=== PATIENT | male | born 1955 | race Caucasian/White ===

== ENCOUNTER 2019-11-01 14:34 | Inpatient (IN) | payer OTHER, MEDICARE ==
[2019-11-01] MEDS ORDERED: IPRATROPIUM/ALBUTEROL 0.5-2.5 MG/3 ML AMPUL NEB ONE (15:30)
--- NOTE | 2019-11-01 15:30 | ER Document Report ---
ED General - General Chief Complaint: General Weakness Stated Complaint: GENERAL WEAKNESS Time Seen by Provider: 11/01/19 15:10 Mode of Arrival: Ambulatory Information source: Patient TRAVEL OUTSIDE OF THE [place] IN LAST 30 DAYS: No - HPI Onset: Other - over the last few days Onset/Duration: Gradual Quality of pain: Pressure Severity: Moderate Associated symptoms: Nonproductive cough Exacerbated by: Other - exertion Relieved by: Remaining still Similar symptoms previously: No Recently seen / treated by doctor: No Notes: 64 year old male with a history of heavy smoking (used to smoke 2-3 packs a day but is down to 1/2 pack a day), HTN, and "Prostate Issues" here for shortness of breath, generalized weakness, and swelling in his lower extremities. The patient is not very clear on his timeline but he says he has been short of breath for over a month but he thinks the feet/leg swelling has been getting acutely worse over the last few weeks. The patient says he gets very short of breath with exertion as well. The patient also says he has some numbness and tingling in his feet/legs. - Related Data Allergies/Adverse Reactions: Penicillins Allergy (Verified 07/09/17 11:40) Past Medical History - General Information source: Patient - Social History Smoking Status: Current Every Day Smoker Frequency of alcohol use: Occasional Drug Abuse: None Family History: Reviewed & Not Pertinent - Past Medical History Cardiac Medical History: Reports: Hx Hypertension EENT Medical History: Reports: None Neurological Medical History: Reports: None Endocrine Medical History: Reports: Hx Diabetes Mellitus Type 2 Renal/ Medical History: Reports: None. Denies: Hx Peritoneal Dialysis Malignancy Medical History: Reports None GI Medical History: Reports: None Musculoskeletal Medical History: Reports None Skin Medical History: Reports None Psychiatric Medical History: Reports: None - Immunizations Hx Diphtheria, Pertussis, Tetanus Vaccination: Yes Review of Systems - Review of Systems Constitutional: Weakness EENT: No symptoms reported Cardiovascular: Orthopnea, Dyspnea, Dizziness, Edema Respiratory: Cough, Short of breath, Wheezing Gastrointestinal: No symptoms reported Genitourinary: No symptoms reported Male Genitourinary: No symptoms reported Musculoskeletal: No symptoms reported Skin: Other - edema of lower legs Neurological/Psychological: No symptoms reported -: Yes All other systems reviewed and negative Physical Exam - Vital signs Vitals: Resp 28 H 11/01/19 14:41 - Notes Notes: GENERAL: Poor Hygiene, Obese, in no acute distress. HEAD: Atraumatic, normocephalic. EYES: Pupils equal round and reactive to light, extraocular movements intact, sclera anicteric, conjunctiva are normal. ENT: Nares patent, oropharynx clear without exudates. Moist mucous membranes. NECK: Normal range of motion, supple without lymphadenopathy or JVD. LUNGS: Decreased breath sounds throughout, mild wheezing throughout, no rales or rhonchi. HEART: Regular rate and rhythm without murmurs, rubs or gallops. ABDOMEN: Soft, nontender, normoactive bowel sounds. No guarding, no rebound. No masses appreciated. EXTREMITIES: Pitting edema of swelling of bilateral feet and lower legs. Normal range of motion. No clubbing or cyanosis. NEUROLOGICAL: Cranial nerves II through XII grossly intact. Normal speech, normal gait. PSYCH: Normal mood, normal affect. SKIN: Warm, Dry, normal turgor, no rashes or lesions noted. Course - Re-evaluation Re-evalutation: 11/01/19 17:19 The patient has has hypercarbic and hypoxica respiratory failure which is likely due to undiagnosed COPD with a possible component of mild CHF (he has edema in his legs a moderately elevated BNP). Patient is on 3L of Oxygen here in the ER and he is not on any at home. Patient admitted after treatment with a Neb and O2. - Vital Signs Vital signs: Temp Pulse Resp BP Pulse Ox 93 28 H 172/79 H 88 L 11/01/19 15:35 11/01/19 16:01 11/01/19 16:01 11/01/19 16:57 - Laboratory Result Diagrams: 11/01/19 15:45 11/01/19 15:45 Laboratory results interpreted by me: 11/01/19 11/01/19 11/01/19 15:38 15:45 15:45 RDW 16.0 H Carbonic Acid 1.82 H ABG pCO2 60.4 H ABG pO2 45.0 L ABG HCO3 32.4 H ABG Total CO2 34.3 H ABG O2 Saturation 77.6 L Chloride 97 L Carbon Dioxide 32 H Glucose 121 H NT-Pro-B Natriuret Pep 11/01/19 15:45 RDW Carbonic Acid ABG pCO2 ABG pO2 ABG HCO3 ABG Total CO2 ABG O2 Saturation Chloride Carbon Dioxide Glucose NT-Pro-B Natriuret Pep 1020 H - Diagnostic Test Radiology reviewed: Image reviewed, Reports reviewed - EKG Interpretation by Me EKG shows normal: Sinus rhythm, [place], Intervals, QRS Complexes Rate: Normal Rhythm: NSR [place]/QRS: LAHB/LAFB Discharge - Discharge Clinical Impression: Acute respiratory failure with hypoxia and hypercarbia Edema Qualifiers: Edema type: localized Qualified Code(s): R60.0 - Localized edema Condition: Stable Disposition: ADMITTED INPATIENT Admitting Provider: Alex (Hospitalist) Unit Admitted: Medical Floor
[2019-11-01 15:49] LABS: ARTERIAL BLOOD BASE EXCESS 4.6 mmol/L; ARTERIAL BLOOD H2CO3 1.82 mmol/L (1.05-1.35); ARTERIAL BLOOD HCO3 32.4 mmol/L (20-24); ARTERIAL BLOOD O2 SATURATION 77.6 % (94-98); ARTERIAL BLOOD PCO2 60.4 mmHg (35-45); ARTERIAL BLOOD PH 7.35 (7.35-7.45); ARTERIAL BLOOD TOTAL CO2 34.3 mmol/L (23-27)
[2019-11-01 15:50] LABS: ARTERIAL BLOOD FIO2 ROOM AIR
--- NOTE | 2019-11-01 15:53 | RADIOLOGY REPORT (SQ) ---
EXAM DESCRIPTION: CHEST SINGLE VIEW COMPLETED DATE/TIME: 11/01/2019 3:19 pm REASON FOR STUDY: dyspnea COMPARISON: PA and lateral views of the chest from 06/26/2014. EXAM PARAMETERS: NUMBER OF VIEWS: One view. TECHNIQUE: An AP view of the chest was obtained. RADIATION DOSE: NA LIMITATIONS: None. FINDINGS: LUNGS AND PLEURA: Low inspiratory lung volumes and patchy bibasilar opacities that could r epresent atelectasis. There is no sizable pleural effusion or pneumothorax. MEDIASTINUM AND HILAR STRUCTURES: No mediastinal or hilar contour abnormality. HEART AND VASCULAR STRUCTURES: The cardiac silhouette and pulmonary vasculature are within normal [place] its. BONES: No acute findings. HARDWARE: None in the chest. OTHER: No other finding. IMPRESSION: Low inspiratory lung volumes and probable bibasilar atelectasis. TECHNICAL DOCUMENTATION: JOB ID: [email or web address]- All Rights Reserved Reading location - IP/workstation name: [email or web address]
[2019-11-01 16:14] LABS: ABSOLUTE BASOPHILS # (AUTO) 0.1 10^3/uL (0.0-0.2); ABSOLUTE EOSINOPHILS # (AUTO) 0.4 10^3/uL (0.0-0.6); ABSOLUTE LYMPHOCYTES (AUTO) 1.4 10^3/uL (0.5-4.7); ABSOLUTE MONOCYTES (AUTO) 0.5 10^3/uL (0.1-1.4); ABSOLUTE NEUT (AUTO) 6.1 10^3/uL (1.7-8.2); BASOPHILS % (AUTO) 0.9 % (0-2); EOSINOPHILS % (AUTO) 5.1 % (0-6); HEMATOCRIT 47.3 % (37.9-51.0); HEMOGLOBIN 16.3 g/dL (13.5-17.0); LYMPHOCYTES % (AUTO) 16.2 % (13-45); MEAN CORPUSCULAR HEMOGLOBIN 29.7 pg (27.0-33.4); MEAN CORPUSCULAR HGB CONC 34.6 g/dL (32.0-36.0); MEAN CORPUSCULAR VOLUME 86 fl (80-97); MONOCYTES % (AUTO) 6.1 % (3-13); PLATELET COUNT 205 10^3/uL (150-450); RED BLOOD COUNT 5.51 10^6/uL (4.35-5.55); SEGMENTED NEUTROPHILS % (AUTO) 71.7 % (42-78); TOTAL CELLS COUNTED % (AUTO) 100 %; WHITE BLOOD COUNT 8.6 10^3/uL (4.0-10.5)
[2019-11-01 16:35] LABS: ALBUMIN 4.2 g/dL (3.5-5.0); ALKALINE PHOSPHATASE 96 U/L (38-126); ANION GAP 10 (5-19); ASPARTATE AMINO TRANSFERASE 43 U/L (17-59); BILIRUBIN,DIRECT 0.2 mg/dL (0.0-0.4); BLOOD UREA NITROGEN 7 mg/dL (7-20); CALCIUM 9.3 mg/dL (8.4-10.2); CARBON DIOXIDE 32 mmol/L (22-30); CHLORIDE 97 mmol/L (98-107); GLUCOSE 121 mg/dL (75-110); POTASSIUM 4.2 mmol/L (3.6-5.0); TOTAL PROTEIN 7.3 g/dL (6.3-8.2)
[2019-11-01 17:08] LABS: TROPONIN I 0.039 ng/mL
[2019-11-01] MEDS ORDERED: OXYCODONE-ACETAMINOPHEN 5-325 MG TABLET PO PRN (17:56)
[2019-11-01] MEDS ORDERED: ACETAMINOPHEN 325 MG TABLET PO PRN (17:56)
[2019-11-01] MEDS ORDERED: ONDANSETRON 4 MG TAB.RAPDIS PO PRN (17:56)
[2019-11-01] MEDS ORDERED: ALBUTEROL SULFATE 0.083% NEB 2.5 MG/3 ML AMPUL NEB PRN (17:56)
[2019-11-01 18:23] LABS: APPEARANCE,URINE CLEAR; BILIRUBIN,URINE NEGATIVE (NEGATIVE); COLOR,URINE YELLOW; GLUCOSE, URINE NEGATIVE (NEGATIVE); KETONES,URINE NEGATIVE (NEGATIVE); LEUKOCYTE ESTERASE,URINE NEGATIVE (NEGATIVE); NITRITE,URINE NEGATIVE (NEGATIVE); PROTEIN,URINE 30 mg/dL (NEGATIVE); URINE SPECIFIC GRAVITY 1.008; UROBILINOGEN,URINE NEGATIVE mg/dL (<2.0)
--- NOTE | 2019-11-01 18:32 | PDOC H&P ---
History of Present Illness Admission Date/PCP: 11/01/19 18:10 [facility] Patient complains of: Patient presents to the emergency room with complaints of difficulty breathing shortness of breath. Patient says this is actually been going on for a couple of months but he decided to come today for evaluation due to his leg swelling. History of Present Illness: MASON VALERO is a 64 year old male Patient presents to the emergency room with complaints of difficulty breathing shortness of breath. Patient says this is actually been going on for a couple of months but he decided to come today for evaluation due to his leg swelling. Patient states he has been getting increasingly short of breath and can hardly walk from the bed just to the door, basically short distance. He denies any chest pain. He denies any nausea and vomiting. He thinks he may have gained some weight over the last few months. Denies any prior history of cardiac illness, stroke, heart attack or any other pertinent complaints. He does say that he has had some problems swallowing but he sees an ENT at the [facility] for that. He was placed on 3 L of oxygen with improvement in his oxygenation. He has also received bronchodilators. His PCO2 was found to be 60 initially with oxygen saturation of 77%. His troponin was borderline at 0.039 with no acute EKG changes and no chest pain. He is also in sinus rhythm. Chest x-ray shows possible bibasilar atelectasis with no cardiomegaly and no other significant findings and laboratory data is significant for an elevated proBNP otherwise grossly normal Past Medical History Cardiac Medical History: Reports: Hypertension Pulmonary Medical History: Reports: Chronic Obstructive Pulmonary Disease (COPD) EENT Medical History: Reports: Throat - Unspecified Neurological Medical History: Reports: None Endocrine Medical History: Reports: Diabetes Mellitus Type 2 Renal/ Medical History: Reports: None Malignancy Medical History: Reports: None GI Medical History: Reports: None Musculoskeltal Medical History: Reports: None Skin Medical History: Reports: None Psychiatric Medical History: Reports: None Hematology: Reports: None Infectious Medical History: Reports: None Past Surgical History Past Surgical History: Reports: Orthopedic Surgery - Right shoulder Social History Information Source: Patient Smoking Status: Current Every Day Smoker Electronic Cigarette use?: No Frequency of Alcohol Use: Occasional Hx Recreational Drug Use: No Hx Prescription Drug Abuse: No - Advance Directive Resuscitation Status: Full Code Family History Family History: Reviewed & Not Pertinent Parental Family History Reviewed: Yes Children Family History Reviewed: Yes Sibling(s) Family History Reviewed.: Yes Medication/Allergy Home Medications: Pantoprazole Sodium [Protonix] 20 mg PO BID #30 tablet. 07/09/17 Allergies/Adverse Reactions: Penicillins Allergy (Verified 07/09/17 11:40) Review of Systems Cardiovascular: PRESENT: dyspnea on exertion, orthropnea - 1 pillow. ABSENT: chest pain Gastrointestinal: ABSENT: abdominal pain Genitourinary: PRESENT: other - Unspecified prostate issues Musculoskeletal: PRESENT: other - Leg swelling Physical Exam Vital Signs: Temp Pulse Resp BP Pulse Ox 93 23 H 172/84 H 90 L 11/01/19 15:35 11/01/19 17:01 11/01/19 17:01 11/01/19 17:01 Intake & Output 10/31/19 11/01/19 11/02/19 06:59 06:59 06:59 Weight 115.666 kg General appearance: PRESENT: no acute distress, well-developed, well-nourished Head exam: PRESENT: atraumatic, normocephalic Eye exam: PRESENT: conjunctiva pink, EOMI, PERRLA. ABSENT: scleral icterus Ear exam: PRESENT: normal external ear exam Mouth exam: PRESENT: moist, tongue midline Neck exam: ABSENT: carotid bruit, JVD, lymphadenopathy, thyromegaly Respiratory exam: PRESENT: rales - Bilateral at the bases, unlabored, wheezes - Scattered wheezing. ABSENT: rhonchi Cardiovascular exam: PRESENT: RRR, +S1, +S2. ABSENT: diastolic murmur, rubs, systolic murmur Pulses: PRESENT: normal dorsalis pedis pul, +2 pedal pulses bilateral - Right more than left Vascular exam: PRESENT: normal capillary refill GI/Abdominal exam: PRESENT: normal bowel sounds, soft. ABSENT: distended, guarding, mass, organolmegaly, rebound, tenderness Rectal exam: PRESENT: deferred Extremities exam: PRESENT: full ROM. ABSENT: calf tenderness, clubbing, pedal edema Neurological exam: PRESENT: alert, awake, oriented to person, oriented to place, oriented to time, oriented to situation, CN II-XII grossly intact. ABSENT: motor sensory deficit Psychiatric exam: PRESENT: appropriate affect, normal mood. ABSENT: homicidal ideation, suicidal ideation Skin exam: PRESENT: dry, intact, warm. ABSENT: cyanosis, rash Results Laboratory Results: 11/01/19 15:45 11/01/19 15:45 11/01/19 11/01/19 11/01/19 15:38 15:45 15:45 WBC 8.6 RBC 5.51 Hgb 16.3 Hct 47.3 MCV 86 MCH 29.7 MCHC 34.6 RDW 16.0 H Plt Count 205 Seg Neutrophils % 71.7 Carbonic Acid 1.82 H HCO3/H2CO3 Ratio 17:1 ABG pH 7.35 ABG pCO2 60.4 H ABG pO2 45.0 L ABG HCO3 32.4 H ABG O2 Saturation 77.6 L ABG Base Excess 4.6 FiO2 ROOM AIR Sodium 138.9 Potassium 4.2 Chloride 97 L Carbon Dioxide 32 H Anion Gap 10 BUN 7 Creatinine 0.62 Est GFR ( Amer) > 60 Glucose 121 H Calcium 9.3 Total Bilirubin 1.0 AST 43 Alkaline Phosphatase 96 Total Protein 7.3 Albumin 4.2 11/01/19 15:45 Troponin I 0.039 NT-Pro-B Natriuret Pep 1020 H EKG Comments: Normal sinus rhythm with no acute ST changes Impressions: Chest X-Ray 11/01/19 14:48 IMPRESSION: Low inspiratory lung volumes and probable bibasilar atelectasis. Status: Image reviewed by - No acute cardiopulmonary disease Assessment and Plan - Diagnosis (1) COPD with acute exacerbation Is this a current diagnosis for this admission?: Yes Plan: Patient will be placed on bronchodilators as well as steroids. We will also place him on empiric Zithromax. We will continue with oxygen support. (2) Diastolic CHF, acute on chronic Is this a current diagnosis for this admission?: Yes Plan: This is a possible diagnosis. Patient has no prior diagnosis of CHF however his BNP is elevated and he does have peripheral edema. Two-dimensional echocardiogram has been ordered. I have also placed him on Lasix. We will continue to monitor (3) Acute respiratory failure with hypoxia and hypercarbia Is this a current diagnosis for this admission?: Yes Plan: Patient was hypoxemic on initial presentation and he did improve with oxygen. (4) Esophagitis Is this a current diagnosis for this admission?: Yes Plan: He will be placed on a soft diet and will continue with PPI - Time Time Spent with patient: 35 or more minutes Medications reviewed and adjusted accordingly: Yes Anticipated discharge: Home Within: within 72 hours
--- NOTE | 2019-11-01 18:32 | EKG REPORT ---
SEVERITY:- ABNORMAL ECG - SINUS RHYTHM PROBABLE LEFT ATRIAL ABNORMALITY LAD, CONSIDER LEFT ANTERIOR FASCICULAR BLOCK BORDERLINE PROLONGED QT INTERVAL : Confirmed by: Antionette Rojas MD 01-Nov-2019 18:32:19
[2019-11-01] MEDS ORDERED: ASPIRIN 81 MG TABLET, CHEWABLE PO ONE (19:39)
[2019-11-01] MEDS ORDERED: METOPROLOL TARTRATE PF/INJ 5 MG/5 ML SDV IV ONE (20:30)
[2019-11-01] MEDS ORDERED: FUROSEMIDE INJ/PF 20 MG/2 ML SDV IV ONE (20:30)
[2019-11-01] MEDS: ALBUTEROL SULFATE 0.083% NEB 2.5 MG/3 ML AMPUL NEB SCH (20:34)
[2019-11-01] MEDS ORDERED: ASPIRIN 81 MG TABLET, CHEWABLE ONE (21:48)
[2019-11-02] MEDS: ALBUTEROL SULFATE 0.083% NEB 2.5 MG/3 ML AMPUL NEB SCH ×4 (02:06→19:57)
[2019-11-02 04:39] LABS: ABSOLUTE BASOPHILS # (AUTO) 0.1 10^3/uL (0.0-0.2); ABSOLUTE LYMPHOCYTES (AUTO) 1.3 10^3/uL (0.5-4.7); ABSOLUTE MONOCYTES (AUTO) 0.5 10^3/uL (0.1-1.4); ABSOLUTE NEUT (AUTO) 8.3 10^3/uL (1.7-8.2); BASOPHILS % (AUTO) 0.8 % (0-2); HEMATOCRIT 47.4 % (37.9-51.0); LYMPHOCYTES % (AUTO) 12.4 % (13-45); MEAN CORPUSCULAR HGB CONC 33.8 g/dL (32.0-36.0); MEAN CORPUSCULAR VOLUME 86 fl (80-97); MONOCYTES % (AUTO) 5.1 % (3-13); PLATELET COUNT 234 10^3/uL (150-450); RED BLOOD COUNT 5.52 10^6/uL (4.35-5.55); RED CELL DISTRIBUTION WIDTH 15.9 % (11.5-14.0); SEGMENTED NEUTROPHILS % (AUTO) 81.7 % (42-78); TOTAL CELLS COUNTED % (AUTO) 100 %; WHITE BLOOD COUNT 10.1 10^3/uL (4.0-10.5)
[2019-11-02] MEDS: ENOXAPARIN SODIUM INJ 40 MG/0.4 ML DISP.SYRIN SUBCUT SCH (10:01)
[2019-11-02] MEDS: ASPIRIN 325 MG TABLET PO SCH (10:02)
[2019-11-02] MEDS: AZITHROMYCIN 250 MG TABLET PO SCH (10:02)
[2019-11-02] MEDS: PREDNISONE 20 MG TABLET PO SCH (10:03)
[2019-11-02] MEDS: DOCUSATE SODIUM 100 MG CAPSULE PO SCH (10:03)
--- NOTE | 2019-11-02 13:55 | PDOC PROGRESS REPORT ---
Subjective Progress Note for:: 11/02/19 Subjective:: Patient reports feeling better today. His breathing has improved although still says he is short of breath. He is on oxygen nasal cannula. Echocardiogram is pending Reason For Visit: ACUTE HYPOXEMIC RESPIRATORY FAILURE,COPD Physical Exam Vital Signs: Temp Pulse Resp BP Pulse Ox 97.9 F 80 16 152/63 H 90 L 11/02/19 07:25 11/02/19 08:17 11/02/19 08:17 11/02/19 07:25 11/02/19 08:17 Intake & Output 11/01/19 11/02/19 11/03/19 06:59 06:59 06:59 Intake Total 960 Balance 960 Weight 131.4 kg General appearance: PRESENT: no acute distress, well-developed, well-nourished Head exam: PRESENT: atraumatic, normocephalic Eye exam: PRESENT: conjunctiva pink, EOMI, PERRLA. ABSENT: scleral icterus Mouth exam: PRESENT: moist, tongue midline Neck exam: ABSENT: carotid bruit, JVD, lymphadenopathy, thyromegaly Respiratory exam: PRESENT: rales, rhonchi, unlabored. ABSENT: wheezes Cardiovascular exam: PRESENT: RRR, +S1, +S2. ABSENT: rubs, systolic murmur Pulses: PRESENT: normal dorsalis pedis pul Vascular exam: PRESENT: normal capillary refill GI/Abdominal exam: PRESENT: normal bowel sounds, soft. ABSENT: distended, guarding, mass, organolmegaly, rebound, tenderness Rectal exam: PRESENT: deferred Extremities exam: PRESENT: full ROM, +1 edema. ABSENT: calf tenderness, clubbing, pedal edema Neurological exam: PRESENT: alert, awake, oriented to person, oriented to place, oriented to time, oriented to situation, CN II-XII grossly intact. ABSENT: motor sensory deficit Psychiatric exam: PRESENT: appropriate affect, normal mood. ABSENT: homicidal ideation, suicidal ideation Skin exam: PRESENT: dry, intact, warm. ABSENT: cyanosis, rash Results Laboratory Results: 11/02/19 04:16 11/01/19 15:45 11/01/19 11/01/19 11/01/19 15:38 15:45 15:45 WBC 8.6 RBC 5.51 Hgb 16.3 Hct 47.3 MCV 86 MCH 29.7 MCHC 34.6 RDW 16.0 H Plt Count 205 Seg Neutrophils % 71.7 Carbonic Acid 1.82 H HCO3/H2CO3 Ratio 17:1 ABG pH 7.35 ABG pCO2 60.4 H ABG pO2 45.0 L ABG HCO3 32.4 H ABG O2 Saturation 77.6 L ABG Base Excess 4.6 FiO2 ROOM AIR Sodium 138.9 Potassium 4.2 Chloride 97 L Carbon Dioxide 32 H Anion Gap 10 BUN 7 Creatinine 0.62 Est GFR ( Amer) > 60 Glucose 121 H Lactic Acid Calcium 9.3 Total Bilirubin 1.0 AST 43 Alkaline Phosphatase 96 Total Protein 7.3 Albumin 4.2 Urine Color Urine Appearance Urine pH Ur Specific [place] Urine Protein Urine Glucose (UA) Urine Ketones Urine Blood Urine Nitrite Ur Leukocyte Esterase Urine WBC (Auto) Urine RBC (Auto) 11/01/19 11/01/19 11/02/19 15:45 18:10 04:16 WBC 10.1 RBC 5.52 Hgb 16.0 Hct 47.4 MCV 86 MCH 29.0 MCHC 33.8 RDW 15.9 H Plt Count 234 Seg Neutrophils % 81.7 H Carbonic Acid HCO3/H2CO3 Ratio ABG pH ABG pCO2 ABG pO2 ABG HCO3 ABG O2 Saturation ABG Base Excess FiO2 Sodium Potassium Chloride Carbon Dioxide Anion Gap BUN Creatinine Est GFR ( Amer) Glucose Lactic Acid 1.4 Calcium Total Bilirubin AST Alkaline Phosphatase Total Protein Albumin Urine Color YELLOW Urine Appearance CLEAR Urine pH 6.0 Ur Specific [place] 1.008 Urine Protein 30 H Urine Glucose (UA) NEGATIVE Urine Ketones NEGATIVE Urine Blood NEGATIVE Urine Nitrite NEGATIVE Ur Leukocyte Esterase NEGATIVE Urine WBC (Auto) 1 Urine RBC (Auto) 0 11/01/19 11/02/19 15:45 04:16 Troponin I 0.039 0.026 NT-Pro-B Natriuret Pep 1020 H Impressions: Chest X-Ray 11/01/19 14:48 IMPRESSION: Low inspiratory lung volumes and probable bibasilar atelectasis. Assessment and Plan - Diagnosis (1) COPD with acute exacerbation Is this a current diagnosis for this admission?: Yes Plan: We will continue with bronchodilators as well as steroids and empiric Zithromax. We will continue with oxygen support. (2) Diastolic CHF, acute on chronic Is this a current diagnosis for this admission?: Yes Plan: Follow-up with echocardiogram (3) Acute respiratory failure with hypoxia and hypercarbia Is this a current diagnosis for this admission?: Yes Plan: Patient still borderline hypoxemic. Will continue to evaluate for possible home oxygen (4) Esophagitis Is this a current diagnosis for this admission?: Yes - Time Time Spent with patient: 15-24 minutes Anticipated discharge: Home Within: within 48 hours
--- NOTE | 2019-11-02 22:00 | XCELERA REPORT ---
[address] [address] Transthoracic Echocardiogram Report Name: MASON VALERO Age: 64 yrs Gender: Male : 1955 Patient Status: Inpatient Patient Location: [address] Study Date: 11/01/2019 07:14 PM Height: 72 in Weight: 255 lb BSA: 2.4 m2 Procedure: A two-dimensional transthoracic echocardiogram with color flow and Doppler was performed. Study Quality: Technically suboptimal. The study was technically limited with all images being suboptimal in quality. The study was technically difficult with many images being suboptimal in quality. Reason For Study: Dyspnea, elevated BNP History: Dyspnea, elevated BNP. Ordering Physician: CARLOS TAN Performed By: Sharron Charles Interpretation Summary The left ventricle is normal in size. There is normal left ventricular wall thickness. No True apical 2 chamber views obtained.Hence cannot comment on the apical anterior , the basal anterior, the basal inferior and apical inferior .The mid anterior , the mid inferior and the rest of the LV contract normally. . LVEF is normal and is greater than 60% in the limited views. Doppler measurements suggest normal left ventricular diastolic function There is no thrombus. Cannot assess ASD,VSD , or PFO, The right ventricle is not well visualized secondary to technical limitations Right atrium not well visualized secondary to technical limitations The left atrial size is normal. There is no evidence of mitral valve prolapse. There is no vegetation seen on the mitral valve. There is no mitral valve stenosis. There is a trace amount of mitral regurgitation There is no aortic valvular vegetation. There is no aortic valve stenosis There is no LVOT obstruction. No aortic regurgitation is present. There is a trace amount of tricuspid regurgitation Right ventricular systolic pressure is normal. VSP is 23 to 28 mm of Hg , witha RA mean of 5 to 10. There is no pulmonic valvular stenosis. There is no pulmonic valvular regurgitation. The aortic root is not well visualized but is probably normal size. The inferior vena cava appeared normal and decreased > 50% with respiration (RAP 5-10 mmHg) There is no pericardial effusion. MMode/2D Measurements & Calculations RVDd: 2.9 cm LVIDd: 5.2 cm FS: 29.0 % Ao root diam: 3.0 cm IVSd: 0.98 cm LVIDs: 3.7 cm EDV(Teich): 128.6 ml Ao root area: 6.9 cm2 LVPWd: 0.91 cm ESV(Teich): 57.5 ml LA dimension: 2.6 cm EF(Teich): 55.3 % LVOT diam: 1.9 cm LVOT area: 2.8 cm2 Doppler Measurements & Calculations MV E max jeison: MV P1/2t max jeison: Ao V2 max: LV V1 max P.1 cm/sec 87.7 cm/sec 120.5 cm/sec 4.7 mmHg MV A max jeison: MV P1/2t: 58.8 msec Ao max P.8 mmHgLV V1 max: 107.6 cm/sec MVA(P1/2t): 3.7 cm2 MALATHI(V,D): 2.6 cm2 108.1 cm/sec MV E/A: 0.68 MV dec slope: 437.2 cm/sec2 MV dec time: 0.25 sec PA V2 max: TR max jeison: MV P1/2t-pr_phl: 95.6 cm/sec 211.7 cm/sec 58.8 msec PA max P.7 mmHgTR max P.9 mmHg Left Ventricle The left ventricle is normal in size. There is normal left ventricular wall thickness. No True apical 2 chamber views obtained.Hence cannot comment on the apical anterior , the basal anterior, the basal inferior and apical inferior .The mid anterior , the mid inferior and the rest of the LV contract normally. . LVEF is normal and is greater than 60% in the limited views. Doppler measurements suggest normal left ventricular diastolic function. There is no thrombus. Cannot assess ASD,VSD , or PFO,. Right Ventricle The right ventricle is not well visualized secondary to technical limitations. Atria Right atrium not well visualized secondary to technical limitations. The left atrial size is normal. Mitral Valve There is no evidence of mitral valve prolapse. There is no vegetation seen on the mitral valve. There is no mitral valve stenosis. There is a trace amount of mitral regurgitation. Aortic Valve There is no aortic valvular vegetation. There is no aortic valve stenosis. There is no LVOT obstruction. No aortic regurgitation is present. Tricuspid Valve There is no tricuspid stenosis. There is a trace amount of tricuspid regurgitation. Right ventricular systolic pressure is normal. VSP is 23 to 28 mm of Hg , witha RA mean of 5 to 10. Pulmonic Valve There is no pulmonic valvular stenosis. There is no pulmonic valvular regurgitation. Great Vessels The aortic root is not well visualized but is probably normal size. The inferior vena cava appeared normal and decreased > 50% with respiration (RAP 5-10 mmHg). Effusions There is no pericardial effusion. : CARLOS TAN Lakshmi
[2019-11-02] MEDS: ZOLPIDEM TARTRATE 5 MG TABLET PO PRN (22:26)
[2019-11-03] MEDS: ALBUTEROL SULFATE 0.083% NEB 2.5 MG/3 ML AMPUL NEB SCH ×4 (01:48→19:51)
[2019-11-03] MEDS: DOCUSATE SODIUM 100 MG CAPSULE PO SCH (09:31)
[2019-11-03] MEDS: PREDNISONE 20 MG TABLET PO SCH (09:31)
[2019-11-03] MEDS: ASPIRIN 325 MG TABLET PO SCH (09:32)
[2019-11-03] MEDS: AZITHROMYCIN 250 MG TABLET PO SCH (09:32)
[2019-11-03] MEDS: ENOXAPARIN SODIUM INJ 40 MG/0.4 ML DISP.SYRIN SUBCUT SCH (09:34)
--- NOTE | 2019-11-03 15:59 | PDOC PROGRESS REPORT ---
Subjective Progress Note for:: 11/03/19 Subjective:: Patient reports feeling better today. His breathing has improved although still says he is short of breath. He remains on oxygen nasal cannula. Echocardiogram is noted, grossly normal Reason For Visit: ACUTE HYPOXEMIC RESPIRATORY FAILURE,COPD Physical Exam Vital Signs: Temp Pulse Resp BP Pulse Ox 97.4 F 89 18 160/78 H 89 L 11/03/19 12:00 11/03/19 13:49 11/03/19 13:49 11/03/19 12:00 11/03/19 13:49 Intake & Output 11/02/19 11/03/19 11/04/19 06:59 06:59 06:59 Intake Total 960 936 Balance 960 936 Weight 131.4 kg 128 kg General appearance: PRESENT: no acute distress, well-developed, well-nourished Head exam: PRESENT: atraumatic, normocephalic Eye exam: PRESENT: conjunctiva pink, EOMI, PERRLA. ABSENT: scleral icterus Mouth exam: PRESENT: tongue midline Neck exam: ABSENT: carotid bruit, JVD, lymphadenopathy, thyromegaly Respiratory exam: PRESENT: crackles, rhonchi, unlabored. ABSENT: rales, wheezes Cardiovascular exam: PRESENT: RRR, +S1, +S2. ABSENT: diastolic murmur, rubs, systolic murmur GI/Abdominal exam: PRESENT: normal bowel sounds, soft. ABSENT: distended, guarding, mass, organolmegaly, rebound, tenderness Rectal exam: PRESENT: deferred Extremities exam: PRESENT: full ROM, +1 edema. ABSENT: calf tenderness, clubbing, pedal edema Neurological exam: PRESENT: alert, awake, oriented to person, oriented to place, oriented to time, oriented to situation, CN II-XII grossly intact. ABSENT: motor sensory deficit Psychiatric exam: PRESENT: appropriate affect, normal mood. ABSENT: homicidal ideation, suicidal ideation Skin exam: PRESENT: dry, intact, warm. ABSENT: cyanosis, rash Results Laboratory Results: 11/02/19 04:16 11/01/19 15:45 11/01/19 11/02/19 15:45 04:16 Troponin I 0.039 0.026 NT-Pro-B Natriuret Pep 1020 H Impressions: Chest X-Ray 11/01/19 14:48 IMPRESSION: Low inspiratory lung volumes and probable bibasilar atelectasis. Assessment and Plan - Diagnosis (1) COPD with acute exacerbation Is this a current diagnosis for this admission?: Yes Plan: Continue with bronchodilators as well as steroids and empiric Zithromax. We will continue with oxygen support and taper as tolerated (2) Diastolic CHF, acute on chronic Is this a current diagnosis for this admission?: Yes Plan: Echocardiogram shows ejection fraction greater than 60% and grossly normal evaluation with normal left ventricular size. Patient likely has a diastolic dysfunction with preserved ejection fraction. We will follow-up with BMP and RONY P in a.m. (3) Acute respiratory failure with hypoxia and hypercarbia Is this a current diagnosis for this admission?: Yes Plan: Patient still hypoxemic. Will continue to evaluate for possible home oxygen, order ambulatory O2 (4) Esophagitis Is this a current diagnosis for this admission?: Yes Plan: Continue PPI - Time Time Spent with patient: 15-24 minutes Anticipated discharge: Home Within: within 48 hours
[2019-11-04] MEDS: ZOLPIDEM TARTRATE 5 MG TABLET PO PRN ×2 (00:19→21:47)
[2019-11-04] MEDS: ALBUTEROL SULFATE 0.083% NEB 2.5 MG/3 ML AMPUL NEB SCH ×4 (02:20→20:23)
[2019-11-04 06:17] LABS: ABSOLUTE BASOPHILS # (AUTO) 0.1 10^3/uL (0.0-0.2); ABSOLUTE EOSINOPHILS # (AUTO) 0.1 10^3/uL (0.0-0.6); ABSOLUTE MONOCYTES (AUTO) 1.2 10^3/uL (0.1-1.4); ABSOLUTE NEUT (AUTO) 6.7 10^3/uL (1.7-8.2); BASOPHILS % (AUTO) 0.7 % (0-2); EOSINOPHILS % (AUTO) 0.8 % (0-6); HEMOGLOBIN 14.9 g/dL (13.5-17.0); LYMPHOCYTES % (AUTO) 27.5 % (13-45); MEAN CORPUSCULAR HGB CONC 33.2 g/dL (32.0-36.0); MEAN CORPUSCULAR VOLUME 87 fl (80-97); MONOCYTES % (AUTO) 10.5 % (3-13); PLATELET COUNT 223 10^3/uL (150-450); RED BLOOD COUNT 5.15 10^6/uL (4.35-5.55); RED CELL DISTRIBUTION WIDTH 16.2 % (11.5-14.0); SEGMENTED NEUTROPHILS % (AUTO) 60.5 % (42-78); TOTAL CELLS COUNTED % (AUTO) 100 %
[2019-11-04 06:41] LABS: BLOOD UREA NITROGEN 15 mg/dL (7-20); CARBON DIOXIDE 36 mmol/L (22-30); CHLORIDE 98 mmol/L (98-107); GLUCOSE 97 mg/dL (75-110); POTASSIUM 4.4 mmol/L (3.6-5.0)
[2019-11-04 06:43] LABS: ANION GAP 4 (5-19)
[2019-11-04] MEDS ORDERED: FUROSEMIDE INJ/PF 40 MG/4 ML SDV IV ONE (09:34)
[2019-11-04] MEDS: ASPIRIN 325 MG TABLET PO SCH (10:26)
[2019-11-04] MEDS: PREDNISONE 20 MG TABLET PO SCH (10:27)
[2019-11-04] MEDS: AZITHROMYCIN 250 MG TABLET PO SCH (10:27)
[2019-11-04] MEDS: METOPROLOL TARTRATE 25 MG TABLET PO SCH (10:27)
[2019-11-04] MEDS: DOCUSATE SODIUM 100 MG CAPSULE PO SCH (10:28)
[2019-11-04] MEDS: ENOXAPARIN SODIUM INJ 40 MG/0.4 ML DISP.SYRIN SUBCUT SCH (10:29)
--- NOTE | 2019-11-04 16:49 | PDOC PROGRESS REPORT ---
Subjective Progress Note for:: 11/04/19 Subjective:: Patient reports feeling better today. O2 is 87% on RA, ambulatory O2 to be checked Echocardiogram is noted, grossly normal Reason For Visit: ACUTE HYPOXEMIC RESPIRATORY FAILURE,COPD Physical Exam Vital Signs: Temp Pulse Resp BP Pulse Ox 98.1 F 84 18 163/88 H 93 11/04/19 13:45 11/04/19 14:12 11/04/19 14:12 11/04/19 13:45 11/04/19 14:12 Pulse Oximeter Ambulatory Start: 11/03/19 15:59 Freq: RTDAILY Status: Active Protocol: Document 11/04/19 12:57 HCR (Rec: 11/04/19 12:57 HCR [email or web address]) Exercise Oximetry Treatment Ambulating SpO2 Charge Now No Intervention Variance Variance Reason by executive chef & Output 11/03/19 11/04/19 11/05/19 06:59 06:59 06:59 Intake Total 936 3072 360 Output Total 2175 Balance 936 897 360 Weight 128 kg 113 kg General appearance: PRESENT: no acute distress Head exam: PRESENT: atraumatic Neck exam: PRESENT: full ROM. ABSENT: JVD, tenderness Respiratory exam: PRESENT: crackles Cardiovascular exam: PRESENT: RRR, +S1, +S2 GI/Abdominal exam: PRESENT: normal bowel sounds, soft Extremities exam: PRESENT: +1 edema. ABSENT: calf tenderness Neurological exam: PRESENT: alert, awake, oriented to person, oriented to time, oriented to situation, reflexes normal Skin exam: ABSENT: abrasion Results Laboratory Results: 11/04/19 04:50 11/04/19 04:50 11/04/19 11/04/19 04:50 04:50 WBC 11.0 H RBC 5.15 Hgb 14.9 Hct 45.0 MCV 87 MCH 29.0 MCHC 33.2 RDW 16.2 H Plt Count 223 Seg Neutrophils % 60.5 Sodium 138.3 Potassium 4.4 Chloride 98 Carbon Dioxide 36 H Anion Gap 4 L BUN 15 Creatinine 0.54 Est GFR ( Amer) > 60 Glucose 97 Calcium 9.0 11/01/19 11/02/19 11/04/19 15:45 04:16 04:50 Troponin I 0.039 0.026 NT-Pro-B Natriuret Pep 1020 H 342 H Impressions: Chest X-Ray 11/01/19 14:48 IMPRESSION: Low inspiratory lung volumes and probable bibasilar atelectasis. Assessment and Plan - Diagnosis (1) COPD with acute exacerbation Is this a current diagnosis for this admission?: Yes Plan: Continue Bronchodilators and steroids (2) Diastolic CHF, acute on chronic Is this a current diagnosis for this admission?: Yes Plan: Echocardiogram shows ejection fraction greater than 60% and grossly normal evaluation with normal left ventricular size. Patient likely has a diastolic dysfunction with preserved ejection fraction. BNP down to 325. Patient received another dose of Lasix today (3) Acute respiratory failure with hypoxia and hypercarbia Is this a current diagnosis for this admission?: Yes Plan: Patient still hypoxemic. Will need home O2 on dc, likely has chronic Respiratory Failure from COPD (4) Esophagitis Is this a current diagnosis for this admission?: Yes Plan: Continue PPI - Time Time Spent with patient: 15-24 minutes Anticipated discharge: Home Within: within 24 hours
[2019-11-04] MEDS: HYDRALAZINE HCL INJ/PF 20 MG/1 ML SDV IV PRN (19:36)
[2019-11-05] MEDS: ALBUTEROL SULFATE 0.083% NEB 2.5 MG/3 ML AMPUL NEB SCH ×4 (01:49→19:47)
[2019-11-05] MEDS: DOCUSATE SODIUM 100 MG CAPSULE PO SCH (09:21)
[2019-11-05] MEDS: AZITHROMYCIN 250 MG TABLET PO SCH (09:22)
[2019-11-05] MEDS: METOPROLOL TARTRATE 25 MG TABLET PO SCH (09:22)
[2019-11-05] MEDS: PREDNISONE 20 MG TABLET PO SCH (09:22)
[2019-11-05] MEDS: HYDRALAZINE HCL INJ/PF 20 MG/1 ML SDV IV PRN (09:23)
[2019-11-05] MEDS: ASPIRIN 325 MG TABLET PO SCH (09:23)
[2019-11-05] MEDS: ENOXAPARIN SODIUM INJ 40 MG/0.4 ML DISP.SYRIN SUBCUT SCH (09:25)
--- NOTE | 2019-11-05 15:48 | PDOC PROGRESS REPORT ---
Subjective Progress Note for:: 11/05/19 Subjective:: Patient reports feeling better today. Patient needs home O2 and this is currently being arranged Reason For Visit: ACUTE HYPOXEMIC RESPIRATORY FAILURE,COPD Physical Exam Vital Signs: Temp Pulse Resp BP Pulse Ox 97.9 F 77 24 H 145/71 H 93 11/05/19 11:18 11/05/19 14:00 11/05/19 11:18 11/05/19 11:18 11/05/19 11:18 Pulse Oximeter Ambulatory Start: 11/03/19 15:59 Freq: RTDAILY Status: Complete Protocol: Document 11/04/19 12:57 HCR (Rec: 11/04/19 12:57 HCR [email or web address]) Exercise Oximetry Treatment Ambulating SpO2 Charge Now No Intervention Variance Variance Reason by computer laboratory technician & Output 11/04/19 11/05/19 11/06/19 06:59 06:59 06:59 Intake Total 3072 1715 600 Output Total 2175 4200 325 Balance 897 -2485 275 Weight 113 kg 113.5 kg General appearance: PRESENT: no acute distress, well-developed, well-nourished Head exam: PRESENT: atraumatic, normocephalic Eye exam: PRESENT: conjunctiva pink, EOMI, PERRLA. ABSENT: scleral icterus Ear exam: PRESENT: normal external ear exam Neck exam: ABSENT: carotid bruit, JVD, lymphadenopathy, thyromegaly Respiratory exam: PRESENT: clear to auscultation patience, rhonchi - Few basal. ABSENT: rales, wheezes Cardiovascular exam: PRESENT: RRR, +S1, +S2. ABSENT: diastolic murmur, rubs, systolic murmur GI/Abdominal exam: PRESENT: normal bowel sounds, soft. ABSENT: distended, guarding, mass, organolmegaly, rebound, tenderness Rectal exam: PRESENT: deferred Extremities exam: PRESENT: full ROM, +1 edema. ABSENT: calf tenderness, clubbing, pedal edema Neurological exam: PRESENT: alert, awake, oriented to person, oriented to place, oriented to time, oriented to situation, CN II-XII grossly intact. ABSENT: motor sensory deficit Psychiatric exam: PRESENT: appropriate affect, normal mood. ABSENT: homicidal ideation, suicidal ideation Skin exam: PRESENT: dry, intact, warm. ABSENT: cyanosis, rash Results Laboratory Results: 11/04/19 04:50 11/04/19 04:50 11/01/19 11/02/19 11/04/19 15:45 04:16 04:50 Troponin I 0.039 0.026 NT-Pro-B Natriuret Pep 1020 H 342 H Impressions: Chest X-Ray 11/01/19 14:48 IMPRESSION: Low inspiratory lung volumes and probable bibasilar atelectasis. Assessment and Plan - Diagnosis (1) COPD with acute exacerbation Is this a current diagnosis for this admission?: Yes Plan: We will taper steroids continue bronchodilators. (2) Diastolic CHF, acute on chronic Is this a current diagnosis for this admission?: Yes Plan: We will give another dose of Lasix today. We will have to decide if patient needs daily Lasix which at this time I doubt it we will have him follow-up with his PCP for evaluation (3) Acute respiratory failure with hypoxia and hypercarbia Is this a current diagnosis for this admission?: Yes Plan: Patient likely has underlying respiratory failure secondary to COPD. He needs home oxygen which is currently being arranged (4) Esophagitis Is this a current diagnosis for this admission?: Yes Plan: Continue PPI - Time Time Spent with patient: 15-24 minutes Medications reviewed and adjusted accordingly: Yes Anticipated discharge: Home Within: within 24 hours
[2019-11-05] MEDS ORDERED: FUROSEMIDE 20 MG TABLET PO ONE (16:09)
[2019-11-05] MEDS: ZOLPIDEM TARTRATE 5 MG TABLET PO PRN (22:18)
[2019-11-06] MEDS: HYDRALAZINE HCL INJ/PF 20 MG/1 ML SDV IV PRN (00:23)
[2019-11-06] MEDS: ALBUTEROL SULFATE 0.083% NEB 2.5 MG/3 ML AMPUL NEB SCH ×4 (02:02→20:07)
[2019-11-06] MEDS: DOCUSATE SODIUM 100 MG CAPSULE PO SCH (10:10)
[2019-11-06] MEDS: METOPROLOL TARTRATE 25 MG TABLET PO SCH (10:10)
[2019-11-06] MEDS: AZITHROMYCIN 250 MG TABLET PO SCH (10:10)
[2019-11-06] MEDS: PREDNISONE 20 MG TABLET PO SCH (10:10)
[2019-11-06] MEDS: ASPIRIN 325 MG TABLET PO SCH (10:10)
[2019-11-06] MEDS: ENOXAPARIN SODIUM INJ 40 MG/0.4 ML DISP.SYRIN SUBCUT SCH (10:10)
--- NOTE | 2019-11-06 15:39 | PDOC PROGRESS REPORT ---
Subjective Progress Note for:: 11/06/19 Subjective:: Patient needs home O[facility] and [facility]. Patient otherwise remains hemodynamically stable and can be discharged once home oxygen is in place Reason For Visit: ACUTE HYPOXEMIC RESPIRATORY FAILURE,COPD Physical Exam Vital Signs: Temp Pulse Resp BP Pulse Ox 97.8 F 83 20 134/63 H 93 11/06/19 14:53 11/06/19 14:53 11/06/19 14:53 11/06/19 14:53 11/06/19 14:53 Pulse Oximeter Ambulatory Start: 11/03/19 15:59 Freq: RTDAILY Status: Complete Protocol: Document 11/04/19 12:57 HCR (Rec: 11/04/19 12:57 HCR [email or web address]) Exercise Oximetry Treatment Ambulating SpO2 Charge Now No Intervention Variance Variance Reason by mental retardation aide & Output 11/05/19 11/06/19 11/07/19 06:59 06:59 06:59 Intake Total 1715 1320 952 Output Total 4200 3600 Balance -2485 -2280 952 Weight 113.5 kg 111.8 kg General appearance: PRESENT: no acute distress Head exam: PRESENT: atraumatic, normocephalic Eye exam: PRESENT: conjunctiva pink, PERRLA. ABSENT: scleral icterus Mouth exam: PRESENT: tongue midline Neck exam: ABSENT: carotid bruit, JVD, lymphadenopathy, thyromegaly Respiratory exam: PRESENT: clear to auscultation patience. ABSENT: rales, rhonchi, wheezes Cardiovascular exam: PRESENT: RRR, +S1, +S2. ABSENT: diastolic murmur, rubs, systolic murmur Pulses: PRESENT: normal dorsalis pedis pul Vascular exam: PRESENT: normal capillary refill GI/Abdominal exam: PRESENT: normal bowel sounds, soft. ABSENT: distended, guarding, mass, organolmegaly, rebound, tenderness Rectal exam: PRESENT: deferred Extremities exam: PRESENT: full ROM. ABSENT: calf tenderness, clubbing, pedal edema Neurological exam: PRESENT: alert, awake, oriented to person, oriented to place, oriented to time, CN II-XII grossly intact. ABSENT: motor sensory deficit Psychiatric exam: PRESENT: appropriate affect, normal mood. ABSENT: homicidal ideation, suicidal ideation Skin exam: PRESENT: dry, intact, warm. ABSENT: cyanosis, rash Results Laboratory Results: 11/04/19 04:50 11/04/19 04:50 11/01/19 11/02/19 11/04/19 15:45 04:16 04:50 Troponin I 0.039 0.026 NT-Pro-B Natriuret Pep 1020 H 342 H Impressions: Chest X-Ray 11/01/19 14:48 IMPRESSION: Low inspiratory lung volumes and probable bibasilar atelectasis. Assessment and Plan - Diagnosis (1) COPD with acute exacerbation Is this a current diagnosis for this admission?: Yes Plan: Continue to taper steroids continue bronchodilators. (2) Diastolic CHF, acute on chronic Is this a current diagnosis for this admission?: Yes Plan: ? Need for Lasix as outpatient Currently receiving Lasix as needed (3) Acute respiratory failure with hypoxia and hypercarbia Is this a current diagnosis for this admission?: Yes Plan: Patient likely has underlying respiratory failure secondary to COPD. He needs home oxygen which is currently still being arranged (4) Esophagitis Is this a current diagnosis for this admission?: Yes Plan: Continue PPI - Time Time Spent with patient: 15-24 minutes Medications reviewed and adjusted accordingly: Yes Anticipated discharge: Home - Awaiting home oxygen
[2019-11-06] MEDS: ZOLPIDEM TARTRATE 5 MG TABLET PO PRN (21:23)
[2019-11-07] MEDS: ALBUTEROL SULFATE 0.083% NEB 2.5 MG/3 ML AMPUL NEB SCH ×4 (02:07→21:13)
[2019-11-07 06:44] LABS: ABSOLUTE EOSINOPHILS # (AUTO) 0.5 10^3/uL (0.0-0.6); ABSOLUTE LYMPHOCYTES (AUTO) 3.3 10^3/uL (0.5-4.7); ABSOLUTE MONOCYTES (AUTO) 1.4 10^3/uL (0.1-1.4); ABSOLUTE NEUT (AUTO) 5.6 10^3/uL (1.7-8.2); BASOPHILS % (AUTO) 0.4 % (0-2); EOSINOPHILS % (AUTO) 4.5 % (0-6); HEMATOCRIT 46.6 % (37.9-51.0); HEMOGLOBIN 15.7 g/dL (13.5-17.0); LYMPHOCYTES % (AUTO) 30.6 % (13-45); MEAN CORPUSCULAR HEMOGLOBIN 28.9 pg (27.0-33.4); MEAN CORPUSCULAR HGB CONC 33.7 g/dL (32.0-36.0); MEAN CORPUSCULAR VOLUME 86 fl (80-97); MONOCYTES % (AUTO) 12.6 % (3-13); PLATELET COUNT 225 10^3/uL (150-450); RED BLOOD COUNT 5.43 10^6/uL (4.35-5.55); RED CELL DISTRIBUTION WIDTH 15.9 % (11.5-14.0); SEGMENTED NEUTROPHILS % (AUTO) 51.9 % (42-78); TOTAL CELLS COUNTED % (AUTO) 100 %; WHITE BLOOD COUNT 10.8 10^3/uL (4.0-10.5)
[2019-11-07 07:03] LABS: ANION GAP 10 (5-19); BLOOD UREA NITROGEN 16 mg/dL (7-20); CALCIUM 9.2 mg/dL (8.4-10.2); CARBON DIOXIDE 35 mmol/L (22-30); CHLORIDE 95 mmol/L (98-107); GLUCOSE 89 mg/dL (75-110); POTASSIUM 4.3 mmol/L (3.6-5.0)
[2019-11-07] MEDS: AZITHROMYCIN 250 MG TABLET PO SCH (11:08)
[2019-11-07] MEDS: METOPROLOL TARTRATE 25 MG TABLET PO SCH (11:08)
[2019-11-07] MEDS: PREDNISONE 20 MG TABLET PO SCH (11:08)
[2019-11-07] MEDS: DOCUSATE SODIUM 100 MG CAPSULE PO SCH (11:08)
[2019-11-07] MEDS: ENOXAPARIN SODIUM INJ 40 MG/0.4 ML DISP.SYRIN SUBCUT SCH (11:08)
[2019-11-07] MEDS: ASPIRIN 325 MG TABLET PO SCH (11:08)
--- NOTE | 2019-11-07 17:57 | PDOC PROGRESS REPORT ---
Subjective Progress Note for:: 11/07/19 Subjective:: This is 64-year-old male who was noted for COPD exacerbation. He was started on IV steroids and breathing treatments. Patient did improve and COPD exacerbation resolved. Patient is requiring home O2 and patient is awaiting for [place] approval for home O2. Otherwise he is medically stable for discharge pending home O2. Denies acute complaints. Reason For Visit: ACUTE HYPOXEMIC RESPIRATORY FAILURE,COPD Physical Exam Vital Signs: Temp Pulse Resp BP Pulse Ox 97.6 F 73 20 132/63 H 93 11/07/19 15:12 11/07/19 15:12 11/07/19 15:12 11/07/19 15:12 11/07/19 15:12 Pulse Oximeter Ambulatory Start: 11/03/19 15:59 Freq: RTDAILY Status: Complete Protocol: Document 11/04/19 12:57 HCR (Rec: 11/04/19 12:57 HCR [email or web address]) Exercise Oximetry Treatment Ambulating SpO2 Charge Now No Intervention Variance Variance Reason by tube station attendant & Output 11/06/19 11/07/19 11/08/19 06:59 06:59 06:59 Intake Total 1320 2444 712 Output Total 3600 1825 Balance -2280 619 712 Weight 246 lb 7.629 oz 244 lb 14.937 oz 244 lb 14.937 oz General appearance: PRESENT: no acute distress, well-developed, well-nourished Head exam: PRESENT: atraumatic, normocephalic Eye exam: PRESENT: conjunctiva pink, EOMI, PERRLA. ABSENT: scleral icterus Ear exam: PRESENT: normal external ear exam Mouth exam: PRESENT: moist, tongue midline Neck exam: ABSENT: carotid bruit, JVD, lymphadenopathy, thyromegaly Respiratory exam: PRESENT: clear to auscultation patience. ABSENT: rales, rhonchi, wheezes Cardiovascular exam: PRESENT: RRR. ABSENT: diastolic murmur, rubs, systolic murmur Pulses: PRESENT: normal dorsalis pedis pul GI/Abdominal exam: PRESENT: normal bowel sounds, soft. ABSENT: distended, guarding, mass, organolmegaly, rebound, tenderness Rectal exam: PRESENT: deferred Extremities exam: PRESENT: full ROM. ABSENT: calf tenderness, clubbing, pedal edema Neurological exam: PRESENT: alert, awake, oriented to person, oriented to place, oriented to time, oriented to situation, CN II-XII grossly intact. ABSENT: motor sensory deficit Results Laboratory Results: 11/07/19 05:59 11/07/19 05:59 11/07/19 11/07/19 05:59 05:59 WBC 10.8 H RBC 5.43 Hgb 15.7 Hct 46.6 MCV 86 MCH 28.9 MCHC 33.7 RDW 15.9 H Plt Count 225 Seg Neutrophils % 51.9 Sodium 139.6 Potassium 4.3 Chloride 95 L Carbon Dioxide 35 H Anion Gap 10 BUN 16 Creatinine 0.57 Est GFR ( Amer) > 60 Glucose 89 Calcium 9.2 11/01/19 11/02/19 11/04/19 15:45 04:16 04:50 Troponin I 0.039 0.026 NT-Pro-B Natriuret Pep 1020 H 342 H Impressions: Chest X-Ray 11/01/19 14:48 IMPRESSION: Low inspiratory lung volumes and probable bibasilar atelectasis. Assessment and Plan - Diagnosis (1) Acute respiratory failure with hypoxia and hypercarbia Is this a current diagnosis for this admission?: Yes Plan: Patient likely has underlying respiratory failure secondary to COPD. Awaiting for home O2 (2) COPD with acute exacerbation Is this a current diagnosis for this admission?: Yes Plan: Resolved. Continue prednisone and breathing treatments. - Time Time Spent with patient: 15-24 minutes
[2019-11-07] MEDS: ZOLPIDEM TARTRATE 5 MG TABLET PO PRN (21:51)
[2019-11-08] MEDS: ALBUTEROL SULFATE 0.083% NEB 2.5 MG/3 ML AMPUL NEB SCH ×4 (02:07→19:49)
[2019-11-08] MEDS: AZITHROMYCIN 250 MG TABLET PO SCH (09:13)
[2019-11-08] MEDS: DOCUSATE SODIUM 100 MG CAPSULE PO SCH (09:13)
[2019-11-08] MEDS: METOPROLOL TARTRATE 25 MG TABLET PO SCH (09:13)
[2019-11-08] MEDS: PREDNISONE 20 MG TABLET PO SCH (09:13)
[2019-11-08] MEDS: ENOXAPARIN SODIUM INJ 40 MG/0.4 ML DISP.SYRIN SUBCUT SCH (09:14)
[2019-11-08] MEDS: ASPIRIN 325 MG TABLET PO SCH (09:14)
[2019-11-08] MEDS ORDERED: METHYL SALICYLATE/MENTHOL BALM 29 GM TOP PRN (10:52)
[2019-11-08] MEDS ORDERED: ALBUTEROL SULFATE HFA (90 MCG/PUFF) 200 PUFF/8.5 GM MDI IH PRN (10:52)
[2019-11-08] MEDS ORDERED: HYDROXYZINE HCL 10 MG TABLET PO PRN (10:52)
[2019-11-08] MEDS ORDERED: PANTOPRAZOLE SODIUM 40 MG TABLET.DR PO ONE (12:00)
[2019-11-08] MEDS ORDERED: PRAMOXINE HCL TOP SCH (13:00)
--- NOTE | 2019-11-08 14:42 | PDOC PROGRESS REPORT ---
Subjective Progress Note for:: 11/08/19 Subjective:: This is 64-year-old male who was noted for COPD exacerbation. He was started on IV steroids and breathing treatments. Patient did improve and COPD exacerbation resolved. Patient is requiring home O2 and patient is awaiting for [place] approval for home O2. Otherwise he is medically stable for discharge pending home O2. No acute issues. Denies acute complaints. Reason For Visit: ACUTE HYPOXEMIC RESPIRATORY FAILURE,COPD Physical Exam Vital Signs: Temp Pulse Resp BP Pulse Ox 98.4 F 92 18 151/69 H 98 11/08/19 11:08 11/08/19 11:08 11/08/19 11:08 11/08/19 11:08 11/08/19 11:08 Pulse Oximeter Ambulatory Start: 11/03/19 15:59 Freq: RTDAILY Status: Complete Protocol: Document 11/04/19 12:57 HCR (Rec: 11/04/19 12:57 HCR [email or web address]) Exercise Oximetry Treatment Ambulating SpO2 Charge Now No Intervention Variance Variance Reason by bonding agent & Output 11/07/19 11/08/19 11/09/19 06:59 06:59 06:59 Intake Total 2444 2150 712 Output Total 1825 Balance 619 2150 712 Weight 244 lb 14.937 oz 247 lb 5.738 oz General appearance: PRESENT: no acute distress, well-developed, well-nourished Head exam: PRESENT: atraumatic, normocephalic Eye exam: PRESENT: conjunctiva pink, EOMI, PERRLA. ABSENT: scleral icterus Ear exam: PRESENT: normal external ear exam Mouth exam: PRESENT: moist, tongue midline Neck exam: ABSENT: carotid bruit, JVD, lymphadenopathy, thyromegaly Respiratory exam: PRESENT: clear to auscultation patience. ABSENT: rales, rhonchi, wheezes Cardiovascular exam: PRESENT: RRR. ABSENT: diastolic murmur, rubs, systolic murmur Pulses: PRESENT: normal dorsalis pedis pul GI/Abdominal exam: PRESENT: normal bowel sounds, soft. ABSENT: distended, guarding, mass, organolmegaly, rebound, tenderness Rectal exam: PRESENT: deferred Extremities exam: PRESENT: full ROM. ABSENT: calf tenderness, clubbing, pedal edema Neurological exam: PRESENT: alert, awake, oriented to person, oriented to place, oriented to time, oriented to situation, CN II-XII grossly intact. ABSENT: motor sensory deficit Results Laboratory Results: 11/07/19 05:59 11/07/19 05:59 11/01/19 11/02/19 11/04/19 15:45 04:16 04:50 Troponin I 0.039 0.026 NT-Pro-B Natriuret Pep 1020 H 342 H Impressions: Chest X-Ray 11/01/19 14:48 IMPRESSION: Low inspiratory lung volumes and probable bibasilar atelectasis. Assessment and Plan - Diagnosis (1) Acute respiratory failure with hypoxia and hypercarbia Is this a current diagnosis for this admission?: Yes Plan: Secondary to COPD. Awaiting for home O2 (2) COPD with acute exacerbation Is this a current diagnosis for this admission?: Yes Plan: Resolved. Continue prednisone and breathing treatments. - Time Time Spent with patient: 15-24 minutes
[2019-11-08] MEDS ORDERED: TAMSULOSIN HCL 0.4 MG CAP.SR.24H PO SCH (16:00)
[2019-11-08] MEDS ORDERED: MINERAL OIL/PETROLATUM,WHITE CREAM 114 GM TOP SCH (18:00)
[2019-11-08] MEDS ORDERED: GABAPENTIN 400 MG CAPSULE PO SCH (22:00)
[2019-11-08] MEDS ORDERED: SENNOSIDES/DOCUSATE 8.6-50 MG 1 EACH TABLET PO SCH (22:00)
[2019-11-09] MEDS: ALBUTEROL SULFATE 0.083% NEB 2.5 MG/3 ML AMPUL NEB SCH ×2 (01:30→08:52)
[2019-11-09] MEDS ORDERED: FLUTICASONE NASAL SPRAY 50 MCG/SPRY 120 SPRAY/16 GM NASL SCH (10:00)
[2019-11-09] MEDS ORDERED: ASCORBIC ACID 500 MG TABLET PO SCH (10:00)
[2019-11-09] MEDS ORDERED: FERROUS SULFATE 325 MG TABLET PO SCH (10:00)
[2019-11-09] MEDS ORDERED: FLUTICASONE/VILANTEROL 200-25 MCG/DOSE IH SCH (10:00)
[2019-11-09] MEDS ORDERED: FINASTERIDE 5 MG TABLET PO SCH (10:00)
[2019-11-09] MEDS ORDERED: FOLIC ACID 1 MG TABLET PO SCH (10:00)
[2019-11-09] MEDS ORDERED: PANTOPRAZOLE SODIUM 40 MG TABLET.DR PO SCH (10:00)
[2019-11-09] MEDS ORDERED: SELENIUM SULFIDE TOP SCH (10:00)
[2019-11-09] MEDS ORDERED: CHOLECALCIFEROL (D3) 1,000 UNIT (25 MCG) TABLET PO SCH (10:00)
[2019-11-09] MEDS: ASPIRIN 325 MG TABLET PO SCH (10:33)
[2019-11-09] MEDS: METOPROLOL TARTRATE 25 MG TABLET PO SCH (10:33)
[2019-11-09] MEDS: DOCUSATE SODIUM 100 MG CAPSULE PO SCH (10:33)
[2019-11-09] MEDS: PREDNISONE 20 MG TABLET PO SCH (10:33)
[2019-11-09] MEDS: ENOXAPARIN SODIUM INJ 40 MG/0.4 ML DISP.SYRIN SUBCUT SCH (10:34)
[2019-11-09 10:45] VITALS: BP 151/69
--- NOTE | 2019-11-10 17:10 | PDOC DISCHARGE SUMMARY ---
Impression - Admit/DC Date/PCP Admission Date/Primary Care Provider: 11/01/19 18:10 [facility] Discharge Date: 11/09/19 - Discharge Diagnosis (1) Acute respiratory failure with hypoxia and hypercarbia Is this a current diagnosis for this admission?: Yes (2) COPD with acute exacerbation Is this a current diagnosis for this admission?: Yes - Additional Information Resuscitation Status: Full Code Discharge Diet: Cardiac Discharge Activity: Activity As Tolerated, Balance Activity w/Rest, Weigh Daily Referrals: [facility] [Primary [facility] Provider] - (THE PATIENT HAS TO CONTACT THE [facility] DEPARTMENT WITH THE [facility] AND REQUEST A CHANGE IN PCP, TO GET A HOSPITAL FOLLOW UP; PER [facility]) Prescriptions: Prednisone [Deltasone 10 mg Tablet] 10 mg PO BID 3 Days #[address] [Spiriva Handihaler 5 Cap/Kit (18 Mcg/Cap)] 1 cap IH DAILY #30 capsule Home Medications: Albuterol Sulfate [Proair HFA Inhalation Aerosol 8.5 gm MDI] 1 puff IH Q6HP PRN 11/02/19 Ascorbic Acid [Vitamin C 500 mg Tablet] 1,000 mg PO DAILY 11/02/19 Budesonide/Formoterol Fumarate [Symbicort HFA 160-4.5 mcg Inhaler 6 gm] 2 puff IH Q12 11/02/19 Cholecalciferol (Vitamin D3) [Vitamin D3 1000 Unit Tablet] 2,000 unit PO DAILY 11/02/19 Ferrous Sulfate [Feosol 325 mg Tablet] 325 mg PO DAILY 11/02/19 Finasteride [Proscar 5 mg Tablet] 5 mg PO DAILY 11/02/19 Fluticasone Propionate [Flonase Nasal [place] 50 Mcg/[place] 16 gm] 1 spray NASL DAILY 11/02/19 Folic Acid [Folvite 1 mg Tablet] 1 mg PO DAILY 11/02/19 Gabapentin [Neurontin 400 mg Capsule] 400 mg PO QHS 11/02/19 Hydroxyzine HCl [Atarax 10 mg Tablet] 10 mg PO HSP PRN 11/02/19 Methyl Salicylate/Menthol [[place] Analgesic [place] 29 gm] 1 applic TOP BIDP PRN 11/02/19 Mineral Oil/Petrolatum,White [Eucerin Cream 114 gm] 1 applic TOP BID 11/02/19 Pantoprazole Sodium [Protonix [address] Tablet] 40 mg PO DAILY 11/02/19 Pramoxine HCl [Sensitive Anti-Itch] 1 applic TOP 5XD 11/02/19 Selenium Sulfide [Selsun Blue] 1 applic TOP DAILY 11/02/19 Sennosides/Docusate 8.6-50 mg [Senna Plus Tablet] 1 tab PO QHS 11/02/19 Tamsulosin HCl [Flomax 0.4 mg Cap.sr] 0.4 mg PO DAILY 11/02/19 Terbinafine HCl [Lamisil At] 1 applic TOP BIDP PRN 11/02/19 Prednisone [Deltasone 10 mg Tablet] 10 mg PO BID 3 Days #6 tablet 11/08/[address] [Spiriva Handihaler 5 Cap/Kit (18 Mcg/Cap)] 1 cap IH DAILY #30 capsule 11/08/19 History of Present Illiness History of Present Illness: Admitting hospitalist's H&P: MASON VALERO is a 64 year old male Patient presents to the emergency room with complaints of difficulty breathing shortness of breath. Patient says this is actually been going on for a couple of months but he decided to come today for evaluation due to his leg swelling. Patient states he has been getting increasingly short of breath and can hardly walk from the bed just to the door, basically short distance. He denies any chest pain. He denies any nausea and vomiting. He thinks he may have gained some weight over the last few months. Denies any prior history of cardiac illness, stroke, heart attack or any other pertinent complaints. He does say that he has had some problems swallowing but he sees an ENT at the [facility] for that. He was placed on 3 L of oxygen with improvement in his oxygenation. He has also received bronchodilators. His PCO2 was found to be 60 initially with oxygen saturation of 77%. His troponin was borderline at 0.039 with no acute EKG changes and no chest pain. He is also in sinus rhythm. Chest x-ray shows possible bibasilar atelectasis with no cardiomegaly and no other significant findings and laboratory data is significant for an elevated proBNP otherwise grossly normal Hospital Course Hospital Course: This is 64-year-old male who was noted for COPD exacerbation. He was started on IV steroids and breathing treatments. Patient promptly improved and COPD exacerbation resolved. He qualified for home O2. His hospitalization was only prolonged because of the waiting time to get [facility] approval for home O2. Physical Exam Vital Signs: Temp Pulse Resp BP Pulse Ox 97.6 F 75 18 151/69 H 94 11/09/19 10:44 11/09/19 10:44 11/09/19 10:44 11/09/19 10:44 11/09/19 10:44 Pulse Oximeter Ambulatory Start: 11/03/19 15:59 Freq: RTDAILY Status: Complete Protocol: Document 11/04/19 12:57 HCR (Rec: 11/04/19 12:57 HCR [id number]) Exercise Oximetry Treatment Ambulating SpO2 Charge Now No Intervention Variance Variance Reason by water valve repairer & Output 11/08/19 11/09/19 11/10/19 06:59 06:59 06:59 Intake Total 2150 1792 Balance 2150 1792 Weight 247 lb 5.738 oz 248 lb 0.321 oz General appearance: PRESENT: no acute distress, well-developed, well-nourished Head exam: PRESENT: atraumatic, normocephalic Eye exam: PRESENT: conjunctiva pink, EOMI, PERRLA. ABSENT: scleral icterus Ear exam: PRESENT: normal external ear exam Mouth exam: PRESENT: moist, tongue midline Neck exam: ABSENT: carotid bruit, JVD, lymphadenopathy, thyromegaly Respiratory exam: PRESENT: clear to auscultation patience. ABSENT: rales, rhonchi, wheezes Cardiovascular exam: PRESENT: RRR. ABSENT: diastolic murmur, rubs, systolic murmur Pulses: PRESENT: normal dorsalis pedis pul GI/Abdominal exam: PRESENT: normal bowel sounds, soft. ABSENT: distended, guarding, mass, organolmegaly, rebound, tenderness Rectal exam: PRESENT: deferred Extremities exam: PRESENT: full ROM. ABSENT: calf tenderness, clubbing, pedal edema Neurological exam: PRESENT: alert, awake, oriented to person, oriented to place, oriented to time, oriented to situation, CN II-XII grossly intact. ABSENT: motor sensory deficit Results Laboratory Results: WBC 10.8 10^3/uL (4.0-10.5) H 11/07/19 05:59 RBC 5.43 10^6/uL (4.35-5.55) 11/07/19 05:59 Hgb 15.7 g/dL (13.5-17.0) 11/07/19 05:59 Hct 46.6 % (37.9-51.0) 11/07/19 05:59 MCV 86 fl (80-97) 11/07/19 05:59 MCH 28.9 pg (27.0-33.4) 11/07/19 05:59 MCHC 33.7 g/dL (32.0-36.0) 11/07/19 05:59 RDW 15.9 % (11.5-14.0) H 11/07/19 05:59 Plt Count 225 10^3/uL (150-450) 11/07/19 05:59 Lymph % (Auto) 30.6 % (13-45) 11/07/19 05:59 [place] % (Auto) 12.6 % (3-13) 11/07/19 05:59 Eos % (Auto) 4.5 % (0-6) 11/07/19 05:59 Baso % (Auto) 0.4 % (0-2) 11/07/19 05:59 Absolute Neuts (auto) 5.6 10^3/uL (1.7-8.2) 11/07/19 05:59 Absolute Lymphs (auto) 3.3 10^3/uL (0.5-4.7) 11/07/19 05:59 Absolute Monos (auto) 1.4 10^3/uL (0.1-1.4) 11/07/19 05:59 Absolute Eos (auto) 0.5 10^3/uL (0.0-0.6) 11/07/19 05:59 Absolute Basos (auto) 0.0 10^3/uL (0.0-0.2) 11/07/19 05:59 Seg Neutrophils % 51.9 % (42-78) 11/07/19 05:59 Carbonic Acid 1.82 mmol/L (1.05-1.35) H 11/01/19 15:38 HCO3/H2CO3 Ratio 17:1 11/01/19 15:38 ABG pH 7.35 (7.35-7.45) 11/01/19 15:38 ABG pCO2 60.4 mmHg (35-45) H 11/01/19 15:38 ABG pO2 45.0 mmHg (80-100) L 11/01/19 15:38 ABG HCO3 32.4 mmol/L (20-24) H 11/01/19 15:38 ABG Total CO2 34.3 mmol/L (23-27) H 11/01/19 15:38 ABG O2 Saturation 77.6 % (94-98) L 11/01/19 15:38 ABG Base Excess 4.6 mmol/L 11/01/19 15:38 FiO2 ROOM AIR 11/01/19 15:38 Sodium 139.6 mmol/L (137-145) 11/07/19 05:59 Potassium 4.3 mmol/L (3.6-5.0) 11/07/19 05:59 Chloride 95 mmol/L (98-107) L 11/07/19 05:59 Carbon Dioxide 35 mmol/L (22-30) H 11/07/19 05:59 Anion Gap 10 (5-19) 11/07/19 05:59 BUN 16 mg/dL (7-20) 11/07/19 05:59 Creatinine 0.57 mg/dL (0.52-1.25) 11/07/19 05:59 Est GFR ( Amer) > 60 (>60) 11/07/19 05:59 Est GFR (MDRD) Non-Af > 60 (>60) 11/07/19 05:59 Glucose 89 mg/dL (75-110) 11/07/19 05:59 Lactic Acid 1.4 mmol/L (0.7-2.1) 11/01/19 18:10 Calcium 9.2 mg/dL (8.4-10.2) 11/07/19 05:59 Total Bilirubin 1.0 mg/dL (0.2-1.3) 11/01/19 15:45 Direct Bilirubin 0.2 mg/dL (0.0-0.4) 11/01/19 15:45 Neonat Total Bilirubin Not Reportable 11/01/19 15:45 Neonat Direct Bilirubin Not Reportable 11/01/19 15:45 Neonat Indirect Bili Not Reportable 11/01/19 15:45 AST 43 U/L (17-59) 11/01/19 15:45 ALT 34 U/L (<50) 11/01/19 15:45 Alkaline Phosphatase 96 U/L (38-126) 11/01/19 15:45 Troponin I 0.026 ng/mL 11/02/19 04:16 NT-Pro-B Natriuret Pep 342 pg/mL (<125) H 11/04/19 04:50 Total Protein 7.3 g/dL (6.3-8.2) 11/01/19 15:45 Albumin 4.2 g/dL (3.5-5.0) 11/01/19 15:45 Urine Color YELLOW 11/01/19 15:45 Urine Appearance CLEAR 11/01/19 15:45 Urine pH 6.0 (5.0-9.0) 11/01/19 15:45 Ur Specific [place] 1.008 11/01/19 15:45 Urine Protein 30 mg/dL (NEGATIVE) H 11/01/19 15:45 Urine Glucose (UA) NEGATIVE mg/dL (NEGATIVE) 11/01/19 15:45 Urine Ketones NEGATIVE mg/dL (NEGATIVE) 11/01/19 15:45 Urine Blood NEGATIVE (NEGATIVE) 11/01/19 15:45 Urine Nitrite NEGATIVE (NEGATIVE) 11/01/19 15:45 Urine Bilirubin NEGATIVE (NEGATIVE) 11/01/19 15:45 Urine Urobilinogen NEGATIVE mg/dL (<2.0) 11/01/19 15:45 Ur Leukocyte Esterase NEGATIVE (NEGATIVE) 11/01/19 15:45 Urine WBC (Auto) 1 /HPF 11/01/19 15:45 Urine RBC (Auto) 0 /HPF 11/01/19 15:45 Urine Bacteria (Auto) TRACE /HPF 11/01/19 15:45 Urine Mucus (Auto) OCC /LPF 11/01/19 15:45 Urine Ascorbic Acid NEGATIVE (NEGATIVE) 11/01/19 15:45 11/01/19 11/02/19 11/04/19 15:45 04:16 04:50 Troponin I 0.039 0.026 NT-Pro-B Natriuret Pep 1020 H 342 H Impressions: Chest X-Ray 11/01/19 14:48 IMPRESSION: Low inspiratory lung volumes and probable bibasilar atelectasis. Stroke Is this a Stroke Patient?: No Acute Heart Failure - Is this a Heart Failure Patient?: No
== END 2019-11-09 11:29 | disposition home or self-care (01) | DRG 189 ==
LOC: ER 14:34 → EH 18:10 → 4N 21:03
PROVIDERS: ADMIT Internal Medicine; ATTEND Internal Medicine
DX: J96.01 Acute respiratory failure with hypoxia (principal); I50.33 Acute on chronic diastolic (congestive) heart failure; J44.1 Chronic obstructive pulmonary disease with (acute) exacerbation; J96.02 Acute respiratory failure with hypercapnia; E11.9 Type 2 diabetes mellitus without complications; I11.0 Hypertensive heart disease with heart failure; K20.9 Esophagitis, unspecified; F17.210 Nicotine dependence, cigarettes, uncomplicated; Z79.899 Other long term (current) drug therapy; Z88.0 Allergy status to penicillin; Z99.81 Dependence on supplemental oxygen
CPT/HCPCS: 36415; 71045; 80048; 80053; 81001; 82803; 83605; 83880; 84484; 85025; 93005; 93010; 93306; 94640; 99285; J0360; J1650; J1940; J3490; J7512; J7620